=== PATIENT | female | born 1945 | race Two or more races ===

== ENCOUNTER 2022-12-01 13:34 | Inpatient (IN) | payer OTHER ==
[~2022-12-01] VITALS: Ht 157.5 cm; Wt 55.8 kg
--- NOTE | 2022-12-01 14:09 | NUR ---
PATIENT IS RECIEVED SAYING THAT SHE WILL BE ADMITTED FOR SURGERY IN THREE DAYS DUE TO AN IBSTRUCTION IN HER LARGE INTESTINE.
[2022-12-01] MEDS ORDERED: COZAAR100 MG (14:10)
[2022-12-01] MEDS ORDERED: SYNTHROID125 MCG (14:11)
[2022-12-01] MEDS ORDERED: JANUVIA50 MG (14:11)
[2022-12-01] MEDS ORDERED: CARDIZEM LA120 MG (14:11)
--- NOTE | 2022-12-01 17:03 | NUR ---
SE EDUCA PACIENTE SOBRE EL [place] MEDICO Y ESTA REFIER ENETENDER. SE CANALIZA Y SE COLOCA IVF Y SE ADMINITRAN MEDS. SE ARMANI MUESTRAS DE [place] D[place] Y SE ENVIAN. SE ENTREGA POTE DE U/A. PENDIENTE A PLACA Y EKG. PACIENTE ADMITIDO BAJO LOS SERVICIOS DEL DR. AMANDO JACKSON
[2022-12-07] MEDS ORDERED: PEPCID AC20 MG PO ×2 (15:10)
[2022-12-07] MEDS ORDERED: TRAM1TAB98 PO ×2 (15:10)
[2022-12-07] MEDS ORDERED: HYOSCYAMINE0.125 M1 SL ×2 (15:10)
== END 2022-12-07 16:08 | disposition home or self-care (01) | DRG 330 ==
LOC: ER 13:34 → SURG 16:16 → SURH 16:16
PROVIDERS: ADMIT Surgery; ATTEND Surgery
PROC: 0DTL4ZZ Resection of Transverse Colon, Percutaneous Endoscopic Approach (ICD-10-PCS; 2022-12-04)
PROC: 0DBU4ZZ Excision of Omentum, Percutaneous Endoscopic Approach (ICD-10-PCS; 2022-12-04)
PROC: 07BB4ZZ Excision of Mesenteric Lymphatic, Percutaneous Endoscopic Approach (ICD-10-PCS; 2022-12-04)
PROC: 3E0F7SF Introduction of Other Gas into Respiratory Tract, Via Natural or Artificial Opening (ICD-10-PCS; 2022-12-04)
PROC: 0DTF4ZZ Resection of Right Large Intestine, Percutaneous Endoscopic Approach (ICD-10-PCS; principal; 2022-12-04 14:30)
DX: K56.601 Complete intestinal obstruction, unspecified as to cause (principal); C18.2 Malignant neoplasm of ascending colon; R59.0 Localized enlarged lymph nodes; R14.0 Abdominal distension (gaseous); K56.49 Other impaction of intestine; K56.1 Intussusception; R19.4 Change in bowel habit; E83.42 Hypomagnesemia; I10 Essential (primary) hypertension; E03.9 Hypothyroidism, unspecified; E11.9 Type 2 diabetes mellitus without complications; Z20.822 Contact with and (suspected) exposure to COVID-19

== ENCOUNTER 2022-12-13 10:44 | Emergency (ER) | payer OTHER ==
[~2022-12-13] VITALS: Ht 157.5 cm; Wt 54.4 kg
[~2022-12-13 10:44] MED LIST: CARDIZEM LA120 MG; COZAAR100 MG; HYOSCYAMINE0.125 M1 SL; JANUVIA50 MG; PEPCID AC20 MG PO; SYNTHROID125 MCG; TRAM1TAB98 PO
== END 2022-12-13 16:26 | disposition home or self-care (01) ==
LOC: ER 10:44
DX: R10.9 Unspecified abdominal pain (principal); Z88.0 Allergy status to penicillin; E03.9 Hypothyroidism, unspecified; I10 Essential (primary) hypertension; E11.9 Type 2 diabetes mellitus without complications; Z79.84 Long term (current) use of oral hypoglycemic drugs

== ENCOUNTER 2023-01-04 14:42 | Inpatient (IN) | payer OTHER ==
[~2023-01-04] VITALS: Ht 157.5 cm; Wt 0.5 kg
[2023-01-10] MEDS ORDERED: OMEPRAZOLE20 MG (15:16)
[2023-01-10] MEDS ORDERED: VITAMIN D31250 MCG (15:18)
[2023-01-10] MEDS ORDERED: RISEDRONATE SO150 MG (15:18)
[2023-01-10] MEDS ORDERED: ATORVASTATIN CA20 MG (15:19)
[2023-02-02] MEDS ORDERED: DICY20TA PO (08:16)
[2023-02-02] MEDS ORDERED: INTESTINEX680 M1 PO (08:16)
[2023-02-02] MEDS ORDERED: PROTONIX40 MG PO (08:16)
== END 2023-02-02 11:18 | disposition home or self-care (01) | DRG 862 ==
LOC: ER 14:42 → SURG 23:59 → SURH 01-17 10:13
PROVIDERS: ADMIT Surgery; ATTEND Surgery
PROC: BW21YZZ Computerized Tomography (CT Scan) of Abdomen and Pelvis using Other Contrast (ICD-10-PCS; 2023-01-04)
PROC: 30243N1 Transfusion of Nonautologous Red Blood Cells into Central Vein, Percutaneous Approach (ICD-10-PCS; 2023-01-05)
PROC: 02HV33Z Insertion of Infusion Device into Superior Vena Cava, Percutaneous Approach (ICD-10-PCS; 2023-01-05)
PROC: BW21ZZZ Computerized Tomography (CT Scan) of Abdomen and Pelvis (ICD-10-PCS; 2023-01-12)
PROC: 0W9G30Z Drainage of Peritoneal Cavity with Drainage Device, Percutaneous Approach (ICD-10-PCS; principal; 2023-01-15)
PROC: 8E0ZXY6 Isolation (ICD-10-PCS; 2023-01-17)
PROC: BW21ZZZ Computerized Tomography (CT Scan) of Abdomen and Pelvis (ICD-10-PCS; 2023-01-22)
PROC: BW21ZZZ Computerized Tomography (CT Scan) of Abdomen and Pelvis (ICD-10-PCS; 2023-01-30)
PROC: BW21YZZ Computerized Tomography (CT Scan) of Abdomen and Pelvis using Other Contrast (ICD-10-PCS; 2023-01-30)
DX: T81.43XA Infection following a procedure, organ and space surgical site, initial encounter (principal); K65.1 Peritoneal abscess; K91.89 Other postprocedural complications and disorders of digestive system; C18.2 Malignant neoplasm of ascending colon; N39.0 Urinary tract infection, site not specified; D63.0 Anemia in neoplastic disease; D50.0 Iron deficiency anemia secondary to blood loss (chronic); D53.0 Protein deficiency anemia; B95.62 Methicillin resistant Staphylococcus aureus infection as the cause of diseases classified elsewhere; E83.42 Hypomagnesemia; R53.81 Other malaise; I10 Essential (primary) hypertension; E11.9 Type 2 diabetes mellitus without complications; Z79.4 Long term (current) use of insulin; Z90.49 Acquired absence of other specified parts of digestive tract